=== PATIENT | female | born 1985 | race African-American/Black ===

== ENCOUNTER 2021-09-04 09:22 | Emergency (ER) | payer SELFPAY ==
[~2021-09-04] VITALS: Ht 157.5 cm; Wt 68.0 kg
[~2021-09-04 09:22] MED LIST: IBUP-2029 MT; LEVO5DRO20 RIGHTEYE
[2021-09-04 09:27] VITALS: BP 130/83
[2021-09-04] MEDS ORDERED: CEFTRIAXONE SODIUM 500 MG/VIAL IM ONE (09:45)
[2021-09-04] MEDS ORDERED: LIDOCAINE HCL 1% 20ML VIAL (Pyxis) INJ INFIL ONE (09:45)
[2021-09-04] MEDS ORDERED: CEFTRIAXONE SODIUM 500 MG/VIAL IM NR (10:30)
[2021-09-04] MEDS ORDERED: LIDOCAINE HCL/PF 1% 10 MG/ML 5ML VIAL INFIL NR (10:30)
== END 2021-09-04 10:35 | disposition left against medical advice (07) ==
LOC: ER 09:22
DX: R30.0 Dysuria (principal); Z91.012 Allergy to eggs
CPT/HCPCS: 99281; J3490

== ENCOUNTER 2023-01-07 15:51 | Emergency (ER) | payer MEDICAID ==
[~2023-01-07] VITALS: Ht 157.5 cm; Wt 73.0 kg
[2023-01-07 15:57] VITALS: BP 158/106
== END 2023-01-07 20:48 | disposition left against medical advice (07) ==
LOC: ER 15:51
DX: R07.89 Other chest pain (principal); Z53.21 Procedure and treatment not carried out due to patient leaving prior to being seen by health care provider; Z98.890 Other specified postprocedural states; Z91.012 Allergy to eggs
CPT/HCPCS: 93005; 99283

== ENCOUNTER 2023-01-14 19:39 | Emergency (ER) | payer MEDICAID | END 2023-01-14 19:49 | disposition left against medical advice (07) | LOC: ER 19:39 | DX: Z53.21 Procedure and treatment not carried out due to patient leaving prior to being seen by health care provider (principal) ==

== ENCOUNTER 2025-09-12 06:12 | Emergency (ER) | payer MEDICAID ==
[~2025-09-12 06:12] MED LIST changes: +IBUP-1455 MT; -IBUP-2029 MT
[2025-09-12 07:10] LABS: BASOPHILS % 0.6 % (0.0-2.0); EOSINOPHILS % 2.1 % (0.0-5.0); HEMATOCRIT. 40.2 % (36.0-48.0); HEMOGLOBIN. 13.2 g/dL (12.0-16.0); LYMPHOCYTES % 26.6 % (20.0-50.0); MEAN PLATELET VOLUME 9.0 fl (7.4-10.4); MONOCYTES % 9.2 % (2.0-8.0); NEUTROPHILS % 61.5 % (40.0-76.0); PLATELET 261 x1000/uL (130-400); RED BLOOD CELL COUNT 4.62 mill/uL (4.2-5.4); RED CELL DISTRIBUTION WIDTH 14.5 % (11.6-14.6)
[2025-09-12 07:20] LABS: CREATININE 0.7 mg/dL (0.6-1.0)
[2025-09-12 07:21] LABS: ETHANOL BLOOD < 10 mg/dL (<10); UREA NITROGEN BLOOD 10 mg/dL (9-23)
[2025-09-12 07:22] LABS: ASPARTATE AMINOTRANSFERASE 23 IU/L (<34); BILIRUBIN DIRECT 0.2 mg/dL (<=3.0)
[2025-09-12 07:23] LABS: BILIRUBIN TOTAL 0.8 mg/dL (0.1-1.0); PROTEIN TOTAL 7.4 g/dL (6.0-8.3)
[2025-09-12] MEDS ORDERED: TOPUD PO (07:32)
[2025-09-12 07:38] LABS: B-HCG QUANTITATIVE < 1 mIU/mL (<6)
[2025-09-12 07:41] LABS: HCG SCREEN NEGATIVE
[2025-09-12 07:46] VITALS: BP 123/74; PULSE 91; RESP 18; TEMP 37.1; O2SAT 100
[2025-09-12 08:19] LABS: CLARITY URINE CLEAR (CLEAR); COLOR URINE YELLOW (YELLOW); GLUCOSE URINE NEGATIVE (NEGATIVE); KETONES URINE NEGATIVE (NEGATIVE); LEUKOCYTE ESTERASE URINE NEGATIVE (NEGATIVE); NITRITE URINE NEGATIVE (NEGATIVE); OCCULT BLOOD URINE 3+ (NEGATIVE); PH URINE 5.5 (4.5-8.0); PROTEIN URINE TRACE (NEGATIVE); SPECIFIC GRAVITY URINE 1.018 (1.005-1.030); UROBILINOGEN URINE 0.2 E.U./dL (0.2-1.0)
[2025-09-12 08:35] LABS: BACTERIA URINE TRACE; RBC URINE 50-100 /hpf (0-2); SQUAMOUS EPITHELIAL CELL URINE 1+ /lpf (RARE/1+); WBC URINE 0-2 /hpf (0-2); YEAST URINE NONE SEEN
[2025-09-12 08:37] LABS: *AMPHETAMINES SCREEN URINE NEGATIVE (NEGATIVE); *BARBITURATES SCREEN URINE NEGATIVE (NEGATIVE); *BENZODIAZEPINES SCREEN URINE NEGATIVE (NEGATIVE); *COCAINE SCREEN URINE NEGATIVE (NEGATIVE); CANNABINOID URINE SCREEN NEGATIVE (NEGATIVE); METHADONE URINE SCREEN NEGATIVE (NEGATIVE); OPIATES URINE SCREEN NEGATIVE (NEGATIVE); PHENCYCLIDINE URINE SCREEN NEGATIVE (NEGATIVE)
[2025-09-12 08:38] LABS: ECSTASY MDMA SCREEN URINE NEGATIVE (NEGATIVE)
[2025-09-13 13:08] LABS: HSV TYPE 2 SPECIFIC AB IGG Reactive (Non Reactive)
== END 2025-09-12 08:05 | disposition home or self-care (01) ==
LOC: ER 06:12
DX: D25.9 Leiomyoma of uterus, unspecified (principal); Z88.5 Allergy status to narcotic agent; Z91.0120 Allergy to eggs, unspecified; Z79.899 Other long term (current) drug therapy
CPT/HCPCS: 36415; 76856; 80048; 80076; 80305; 80320; 81003; 83735; 84702; 84703; 85025; 86592; 86695; 86696; 86850; 86900; 87340; 99284; G0480